=== PATIENT | female | born 1970 | race Caucasian/White ===

== ENCOUNTER 2020-10-23 08:53 | Emergency (ER) | payer BC, OTHER ==
[2020-10-23 09:00] VITALS: BP 132/76
--- OUTSIDE RECORDS SUMMARY | 2020-10-23 09:15 | EXTERNAL MEDICAL SUMMARY RPT | Continuity of Care Document ---
:1970 Demographics Phone Unavailable Preferred Language Unknown Marital Status Unknown Catholic Affiliation Unknown Race Unknown Ethnic Group Unknown Author Organization [place] Address [address] [id number] Phone Social History date description facility [id number]
[2020-10-23] MEDS ORDERED: TETANUS/DIPHTHERIA/PERTUSSIS 0.5 ML SYRINGE IM ONE (09:18)
[2020-10-23] MEDS ORDERED: IBUPROFEN 400 MG TABLET PO STA (09:19)
--- NOTE | 2020-10-23 09:28 | ED Physician Documentation ---
PD HPI SKIN - Stated complaint Stated Complaint: RT FT INJ - Chief complaint Chief Complaint: Wound - History obtained from History obtained from: Patient - Additional information Additional information: 50-year-old woman presents after stepping on a bone her dog was chewing on with subsequent puncture wound to the right foot. She is unsure if there are are any bone fragments in the wound. Unsure of her last tetanus shot. Ambulatory on the ball of the foot. 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, Breast reduction - Present Medications Home Medications: Ambulatory Orders Medication Instructions Recorded Confirmed Esomeprazole Magnesium [Nexium] 1 tab DAILY 04/12/16 10/23/20 buPROPion [Wellbutrin Sr] 450 mg DAILY 04/12/16 10/23/20 clonazePAM [Clonazepam] 1 mg BID 04/12/16 10/23/20 Citalopram [CeleXA] 20 mg PO DAILY 10/23/20 10/23/20 Levofloxacin [Levaquin] 500 mg PO BID #6 tablet 10/23/20 lamoTRIgine [Lamictal Xr] 100 mg PO DAILY 10/23/20 10/23/20 - Allergies Allergies/Adverse Reactions: Allergies Allergy/AdvReac Type Severity Reaction Status Date / Time Sulfa (Sulfonamide Allergy Unknown Verified 04/12/16 16:55 Antibiotics) - Social History Does the pt smoke?: No Smoking Status: Never smoker Does the pt drink ETOH?: Yes Does the pt have substance abuse?: No PD ED PE NORMAL - Vitals Vital signs reviewed: Yes - General General: Alert and oriented X 3, No acute distress, Well developed/nourished - HEENT HEENT: Atraumatic, PERRL, EOMI - Derm Derm: Normal color, Warm and dry, Other (arch of R foot with avulsed skin and underlying 2mm puncture wound, hemostatic. no foreign body identified.) - Extremities Extremities: No deformity, Normal ROM s pain Results - Vitals Vitals: Vital Signs - 24 hr 10/23/20 08:56 Temperature 37.2 C Heart Rate 92 Respiratory 14 Rate Blood Pressure 132/76 H O2 Saturation 96 Oxygen O2 Source Room air PD MEDICAL DECISION MAKING - ED course ED course: 50-year-old woman presents with puncture wound to the right foot happening this morning after stepping on a dog bone. There appears to be no foreign body on x- ray or on clinical exam. The patient declined numbing medication and the decision was made not to sew up the foot in order to prevent infection. Sterile saline irrigated and sterile dressing applied. Return precautions given. Patient will follow up with her primary doctor or urgent care for wound check. Departure - Departure Disposition: 01 Home, Self Care Clinical Impression: Puncture wound Condition: Good Instructions: ED JACKELINE, ED Wound Puncture General Prescriptions: Levofloxacin [Levaquin] 500 mg PO BID #6 tablet Comments: You were seen in the emergency department for a puncture wound to your right foot. Your xray showed no bone fragments. The wound was cleaned and a sterile dressing was applied. You received a tetanus shot as well. Take your antibiotics as prescribed. Follow-up with your primary doctor for wound check this week. Return to the emergency department if you experience any signs of infection or any new or worsening symptoms or anything else of concern to you.
[2020-10-23] MEDS ORDERED: BACITRACIN ZINC OINT 1 PACKET TOP STA (09:32)
--- NOTE | 2020-10-23 09:38 | XRAY Report ---
PROCEDURE: Foot 2 View RT INDICATIONS: r/o foreign body (stepped on dog bone. puncture wo TECHNIQUE: 2 views of the foot were acquired. COMPARISON: None FINDINGS: Bones: No acute fractures or dislocations. No suspicious bony lesions. Very small plantar calcanea l and retrocalcaneal enthesophytes. Soft tissues: No tibiotalar joint effusion. Achilles tendon appears normal. No radiopaque soft tis nguyễn foreign bodies. IMPRESSION: No radiopaque soft tissue foreign body. No acute fracture or dislocation. Very small plantar calcaneal and retrocalcaneal enthesophytes. Reviewed by: Luis Angel Guerrero MD on 10/23/2020 8:37 AM NIA Approved by: Luis Angel Guerrero MD on 10/23/2020 8:37 AM NIA Station ID: [id number]
== END 2020-10-23 09:52 | disposition home or self-care (01) ==
LOC: ED 08:53
DX: S91.331A Puncture wound without foreign body, right foot, initial encounter (principal); W45.8XXA Other foreign body or object entering through skin, initial encounter; W22.8XXA Striking against or struck by other objects, initial encounter; Z23 Encounter for immunization
CPT/HCPCS: 73620; 90471; 90715; 99281; 99283; A9270

== ENCOUNTER 2023-11-02 12:10 | Emergency (ER) | payer OTHER ==
[2023-11-02 13:01] LABS: BASOPHILS % (AUTO) 0.7 %; EOSINOPHILS # (AUTO) 0.1 10^3/uL (0.0-0.7); EOSINOPHILS % (AUTO) 2.6 %; HCT - HEMATOCRIT 34.4 % (37.0-47.0); HGB - HEMOGLOBIN 10.4 g/dL (12.0-16.0); LYMPHOCYTES # (AUTO) 1.3 10^3/uL (1.5-3.5); MEAN CORPUSCULAR HEMOGLOBIN 26.8 pg (27.0-31.0); MEAN CORPUSCULAR HGB CONC 30.2 g/dL (32.0-36.0); MEAN CORPUSCULAR VOLUME 88.7 fL (81.0-99.0); MEAN PLATELET VOLUME 8.5 fL (7.9-10.8); MONOCYTES # (AUTO) 0.5 10^3/uL (0.0-1.0); MONOCYTES % (AUTO) 10.8 %; NEUTROPHILS # (AUTO) 2.4 10^3/uL (1.5-6.6); NEUTROPHILS % (AUTO) 55.4 %; PLT - PLATELET COUNT 416 10^3/uL (130-450); RED BLOOD COUNT 3.88 10^6/uL (4.20-5.40); RED CELL DISTRIBUTION WIDTH 15.6 % (12.0-15.0); WHITE BLOOD COUNT 4.3 x10^3/uL (4.8-10.8)
[2023-11-02 13:16] LABS: ALBUMIN 4.1 g/dL (3.2-5.5); ALBUMIN/GLOBULIN RATIO 1.2 (1.0-2.2); BILIRUBIN,TOTAL 0.4 mg/dL (0.2-1.0); CALCIUM 9.6 mg/dL (8.5-10.3); CREATININE 0.9 mg/dL (0.6-1.3); TOTAL PROTEIN 7.5 g/dL (6.4-8.9)
--- NOTE | 2023-11-02 13:30 | ED Physician Documentation ---
PD HPI FEMALE - Stated complaint Stated Complaint: GI/ - Chief complaint Chief Complaint: Abd Pain - History obtained from History obtained from: Patient - Additional information Additional information: Patient is a 53-year-old female with a prior history of a hysterectomy including removal of the ovaries and cervix presenting for noticing blood from her vagina while she was trying to have a bowel movement. Patient states that she is supposed to have another reconstructive surgery in the area but did not due to COVID. She states her concern is that her bowel movement was trying to come t hrough the vagina as this is when she noticed the blood. She does not take a blood thinner. She reports having some lower abdominal cramping. No nausea or vomiting. No dizziness. She does state that she did insert her thumb into the vagina and this is when she again noticed some more blood. No clots. 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 - Present Medications Home Medications: Ambulatory Orders Medication Instructions Recorded Confirmed Esomeprazole Magnesium [Nexium] 1 tab DAILY 04/12/16 10/23/20 buPROPion [Wellbutrin Sr] 450 mg DAILY 04/12/16 10/23/20 clonazePAM [Clonazepam] 1 mg BID 04/12/16 10/23/20 Citalopram [CeleXA] 20 mg PO DAILY 10/23/20 10/23/20 lamoTRIgine [Lamictal Xr] 100 mg PO DAILY 10/23/20 10/23/20 levoFLOXacin [Levaquin] 500 mg PO BID #6 tablet 10/23/20 - Allergies Allergies/Adverse Reactions: Allergies Allergy/AdvReac Type Severity Reaction Status Date / Time Sulfa (Sulfonamide Allergy Unknown Verified 11/02/23 12:22 Antibiotics) - Social History Does the pt smoke?: Yes Smoking Status: Current every day smoker Does the pt drink ETOH?: Yes Does the pt have substance abuse?: No PD ED PE NORMAL - General General: Alert and oriented X 3, No acute distress, Well developed/nourished - HEENT HEENT: Atraumatic - Neck Neck: Supple, no meningeal sign - Cardiac Cardiac: RRR, Strong equal pulses - Respiratory Respiratory: No respiratory distress, Clear bilaterally - Abdomen Abdomen: Normal bowel sounds, Soft, Non tender, Non distended - Female Female : [employer] 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 (Mayte ARAYA), Other (Normal external exam, small speculum inserted and there is an area of the vaginal wall that Appears to have an abrasion With small spotting of blood, I was unable to see the cervix and patient states that her cervix was removed, no foreign body Or abnormal discharge) - Rectal Rectal: Other (Chaperoned by Mayte ARAYA, normal rectal tone, no pain, normal colored stool with no visible blood) - Derm Derm: Warm and dry - Neuro Neuro: Normal speech Results - Vitals Vitals: Vital Signs - 24 hr 11/02/23 11/02/23 12:17 13:36 Temperature 36.7 C 36.8 C Heart Rate 95 95 Respiratory 17 18 Rate Blood Pressure 140/73 H 131/78 H O2 Saturation 96 99 Oxygen O2 Source Room air - Labs Labs: Laboratory Tests 11/02/23 11/02/23 12:56 12:56 WBC 4.3 L RBC 3.88 L Hgb 10.4 L Hct 34.4 L MCV 88.7 MCH 26.8 L MCHC 30.2 L RDW 15.6 H Plt Count 416 MPV 8.5 Neut # (Auto) 2.4 Lymph # (Auto) 1.3 L [place] # (Auto) 0.5 Eos # (Auto) 0.1 Baso # (Auto) 0.0 Absolute Nucleated RBC 0.00 Nucleated RBC % 0.0 Sodium 139 Potassium 4.0 Chloride 106 Carbon Dioxide 27 Anion Gap 6.0 BUN 21 H Creatinine 0.9 Estimated GFR (MDRD) 65 L Glucose 124 H Calcium 9.6 Total Bilirubin 0.4 AST 15 ALT 15 Alkaline Phosphatase 122 H Total Protein 7.5 Albumin 4.1 Globulin 3.4 Albumin/Globulin Ratio 1.2 Lipase 32 PD Medical Decision Making - ED course Complexity details: reviewed results, d/w patient ED course: Patient is a 53-year-old female presenting for evaluation of bleeding from the genital region. Abdominal exam is benign. Rectal exam was performed with no obvious signs of blood. Pelvic exam was also performed and patient has had a prior hysterectomy including removal of the cervix. There is an area of the vaginal wall that appears to have an abrasion like appearance with some bleeding. No significant lacerations warranting suture repair. Labs reviewed including CBC and chemistries. Patient has anemia with a hemoglobin of 10.4. Patient states she has a history of anemia and is unsure of a prior labs and does not have access to other labs through the [facility]. Repeat abdominal exam is benign and we did discuss option of obtaining a CT scan which patient at this time declines as she is not having any pain. I do not think an ultrasound would be particularly helpful as she does not have a uterus. Bleeding seems to be from the vaginal wall but it is unclear as to what started this bleeding. Patient advised on need for close follow-up with PCP as well as gynecology. She is advised on concerning symptoms to return for. There is no exam findings to suggest fistula. Departure - Departure Disposition: 01 Home, Self Care Clinical Impression: Vaginal bleeding, Anemia Condition: Stable Instructions: ED Anemia Type Not Specified Follow-Up: [facility] [Provider Group] Comments: There is an area of the vaginal canal that is bleeding and looks like an abrasion. I do not see signs of a fistula such as leakage of urine or stool into the vaginal canal.At this time I would not recommend inserting anything into the vaginal canal such as a tampon. If you develop heavy bleeding then please return to the emergency department. Your testing today does show that you have mild anemia with a hemoglobin of 10.4. I do not have access to old labs to see where your hemoglobin usually is but I would recommend close follow-up with your PCP at the [facility] for monitoring and further testing or treatment. Please return to the ER with any worsening symptoms. Forms: PCP List Discharge Date/Time: 11/02/23 13:36
[2023-11-02 13:46] VITALS: BP 131/78; O2SAT 99
== END 2023-11-02 13:36 | disposition home or self-care (01) ==
LOC: ED 12:10
DX: N93.9 Abnormal uterine and vaginal bleeding, unspecified (principal); D64.9 Anemia, unspecified; F17.200 Nicotine dependence, unspecified, uncomplicated
CPT/HCPCS: 36415; 80053; 83690; 85025; 99283